=== PATIENT | female | born 1935 | race Caucasian/White ===

== ENCOUNTER 2016-10-03 10:42 | Observation (INO) | payer MEDICARE ==
[~2016-10-03] VITALS: Ht 154.9 cm; Wt 71.4 kg
[~2016-10-03 10:42] MED LIST: ALLOPURINOL300 MG PO; ARIMIDEX1 MG PO; AUGMENTIN875TAB PO; AVELOX400 MG OR; CEPHALEXIN500 MG OR; DIOVAN320 MG OR; FUROSEMIDE20 MG PO; FUROSEMIDE40 MG PO; K-DUR/KLOR-CON10 MEQ PO; LASIX40 MG PO; LEVOTHROID125 MCG PO; LORTAB 5 OR; MAXZIDE OR; MECLIZINE25 MG PO; POT CHLORIDE10 ME1 PO; PROAIR HFA IN; SERTRALINE50 MG PO; TEKTURNA300 MG OR; TESSALON200 MG PO; TOPROL XL100 MG PO; TUSSIONEX1 ML OR; VYTORIN 10/201 TAB PO; ZYRTEC5 MG OR
[2016-10-03 11:16] LABS: HEMOGLOBIN 13.9 g/dl (12.0-16.0); IMMATURE GRANULOCYTES 0.4 % (0.0-1.0); MEAN CELL VOLUME 84.3 fL CALC (80.0-100.0); MEAN CORPUSCULAR HGB 26.6 pG CALC (26.0-32.0); MEAN CORPUSCULAR HGB CONC 31.6 g/L CALC (32.0-36.0); NEUT# 6.04 thou/uL (2.00-7.15); RED BLOOD COUNT 5.22 mill/uL (4.20-5.60)
[2016-10-03] MEDS ORDERED: LEVOTHYROXIN125 MCG PO (11:31)
[2016-10-03] MEDS ORDERED: TOPROL XL25 MG PO (11:37)
[2016-10-03] MEDS ORDERED: POT CHLORIDE20 ME3 PO (11:39)
[2016-10-03 12:37] LABS: ALBUMIN 4.1 g/dL (3.2-5.0); BILIRUBIN, TOTAL 1.9 mg/dL (0.0-1.4); CREATININE 1.3 mg/dL (0.5-1.0); POTASSIUM 4.3 mmol/l (3.5-5.1); TOTAL PROTEIN 7.6 g/dL (6.3-8.2)
[2016-10-03 13:36] LABS: URINE BILIRUBIN - DIPSTICK NEGATIVE (NEGATIVE); URINE BLOOD DIPSTICK SMALL (NEGATIVE); URINE COLOR YELLOW; URINE GLUCOSE - DIPSTICK NEGATIVE (NEGATIVE); URINE KETONE NEGATIVE (NEGATIVE); URINE LEUK ESTERASE NEGATIVE (NEGATIVE); URINE NITRITE - DIPSTICK NEGATIVE (Negative); URINE PH 5.5 (4.5-8.0); URINE PROTEIN - DIPSTICK >=300 mg/dL (NEG-TRACE); URINE UROBILINOGEN - DIPSTICK 0.2 E.U./dL (0.2)
[2016-10-03 13:55] LABS: URINE CLARITY SLIGHT CLOUDY
[2016-10-03 13:59] LABS: URINE EPITHELIAL CELLS FEW EPI/hpf (0-FEW); URINE MUCUS MODERATE hpf (NONE-FEW); URINE RBC 0-2 RBC/hpf (0-5)
[2016-10-03 17:05] VITALS: BP 145/71
[2016-10-03 20:08] VITALS: BP 153/77
[2016-10-03 23:04] VITALS: BP 143/74
[2016-10-04 03:26] VITALS: BP 144/87
[2016-10-04 06:00] LABS: HEMATOCRIT 41.9 % (37.0-47.0); HEMOGLOBIN 13.5 g/dl (12.0-16.0); IMMATURE GRANULOCYTES 0.1 % (0.0-1.0); MEAN CELL VOLUME 82.2 fL CALC (80.0-100.0); MEAN CORPUSCULAR HGB 26.5 pG CALC (26.0-32.0); MEAN CORPUSCULAR HGB CONC 32.2 g/L CALC (32.0-36.0); NEUT# 5.35 thou/uL (2.00-7.15); RED BLOOD COUNT 5.1 mill/uL (4.20-5.60); RED CELL DISTRI WIDTH 17.2 % (11.5-15.5)
[2016-10-04 06:12] LABS: CALCIUM 8.9 mg/dL (8.4-10.2); CREATININE 1.5 mg/dL (0.5-1.0); MAGNESIUM 1.7 mg/dL (1.6-2.3); POTASSIUM 4.3 mmol/l (3.5-5.1)
[2016-10-04 08:40] VITALS: BP 136/69
[2016-10-04 12:19] VITALS: BP 135/76
[2016-10-04] MEDS ORDERED: LASIX20 MG PO (13:27)
== END 2016-10-04 14:20 | disposition home or self-care (01) ==
LOC: ENPENDDIS → ED 10:42 → ED-I 15:05 → ED 15:28 → MS2 15:29
PROVIDERS: Emergency Medicine; ADMIT Internal Medicine; ATTEND Internal Medicine
DX: I50.9 Heart failure, unspecified (principal); I25.5 Ischemic cardiomyopathy; I25.10 Atherosclerotic heart disease of native coronary artery without angina pectoris; E78.5 Hyperlipidemia, unspecified; E03.9 Hypothyroidism, unspecified; N18.3 Chronic kidney disease, stage 3 (moderate); R06.02 Shortness of breath; Z85.3 Personal history of malignant neoplasm of breast; Z95.810 Presence of automatic (implantable) cardiac defibrillator; Z90.10 Acquired absence of unspecified breast and nipple; Z95.5 Presence of coronary angioplasty implant and graft; Z79.899 Other long term (current) drug therapy